=== PATIENT | female | born 2000 | race Caucasian/White ===

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

== ENCOUNTER 2021-11-25 17:58 | Emergency (ER) | payer SELFPAY ==
--- NOTE | 2021-11-25 18:24 | EDPHYS ---
Physician Documentation [facility] Name: Sherita Mccurdy Age: 21 yrs Sex: Female : 2000 Arrival Date: 11/25/2021 Time: 18:01 Bed Waiting Private MD: Benjamin Naylor E ED Physician Jefry Duvall HPI: 11/25 18:30 This 21 yrs old Female presents to ER via Ambulatory with complaints of Arm Pain - left.jh7 18:30 He wasPatient reports that her Nexplanon implant in her left upper arm has been causing jh7 her pain for the past month. States that she has had it in for 5 years, but was supposed to only have it in for 3 years. Denies fever, redness, or swelling.. 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 - Social history:: Smoking status: Patient denies any tobacco usage or history of. Patient/guardian denies using alcohol. ROS: 18:30 Constitutional: Negative for fever, chills, and weight loss, Cardiovascular: Negative jh7 for chest pain, palpitations, and edema, Respiratory: Negative for shortness of breath, cough, wheezing, and pleuritic chest pain, Abdomen/GI: Negative for abdominal pain, nausea, vomiting, diarrhea, and constipation, Skin: Negative for injury, rash, and discoloration, Neuro: Negative for headache, weakness, numbness, tingling, and seizure. 18:30 MS/extremity: Positive for pain, Negative for injury or acute deformity, rash, swelling. 18:30 All other systems are negative. Exam: 18:30 Constitutional: This is a well developed, well nourished patient who is awake, alert, jh7 and in no acute distress. Cardiovascular: Regular rate and rhythm with a normal S1 and S2. No gallops, murmurs, or rubs. Normal PMI, no JVD. No pulse deficits. Respiratory: Lungs have equal breath sounds bilaterally, clear to auscultation and percussion. No rales, rhonchi or wheezes noted. No increased work of breathing, no retractions or nasal flaring. Abdomen/GI: Soft, non-tender, with normal bowel sounds. No distension or tympany. No guarding or rebound. No evidence of tenderness throughout. Skin: Warm, dry with normal turgor. Normal color with no rashes, no lesions, and no evidence of cellulitis. Neuro: Awake and alert, GCS 15, oriented to person, place, time, and situation. Sensory grossly intact. Normal gait. 18:30 Skin: Nexplanon implant palpable in the left upper arm. No erythema, swelling, or drainage noted. The area is mildly tender to palpation.. Vital Signs: 18:25 BP 156 / 94; Pulse 86; Resp 18; Temp 98.7(TE); Pulse Ox 100% on R/A; Weight 88.45 kg; ld1 Height 5 ft. 3 in. (160.02 cm); Pain 9/10; 18:25 Body Mass Index 34.54 (88.45 kg, 160.02 cm) ld1 MDM: 18:23 Patient medically screened. [facility] 18:30 Data reviewed: vital signs, nurses notes. Data interpreted: Pulse oximetry: is 100 %. jh7 Interpretation: normal. Counseling: I had a detailed discussion with the patient and/or guardian regarding: the historical points, exam findings, and any diagnostic results supporting the discharge/admit diagnosis, the need for outpatient follow up, an OB/Gyne specialist. ED course: Informed the patient that we could give her something for pain today, but that she would need to follow-up with her CEMENT MASON for Nexplanon implant removal. Agreed to give her medication for pain over the weekend while she scheduled a visit with her CEMENT MASON. The patient understood the plan of care.. Administered Medications: 18:26 Drug: Ketorolac 60 mg Route: IM; Site: right deltoid; ld1 Disposition: 11/26 18:01 Co-signature as Attending Physician, Jefry Duvall MD. me2 Disposition Summary: 11/25/21 18:23 Discharge Ordered Location: Home [facility] Problem: [facility] Symptoms: have improved [facility] Condition: Stable [facility] Diagnosis - Pain in left upper arm [facility] Followup: [facility] - With: Flavio Parnell MD - When: 1 - 2 days - Reason: Further diagnostic work-up Followup: [facility] - With: Esther Vaughn MD - When: 1 - 2 days - Reason: Further diagnostic work-up Discharge Instructions: - Discharge Summary Sheet [facility] Forms: - Medication Reconciliation Form [facility] - Thank You Letter [facility] Prescriptions: - Tramadol 50 mg Oral Tablet - take 1 tablet by ORAL route every 8 hours as needed; 12 tablet; Refills: 0, jh7 Product Selection Permitted Signatures: Jefry Duvall MD MD ma2 Kiarra De Souza RN RN ld1 Meaghan Nunez, AEROBICS INSTRUCTOR AEROBICS INSTRUCTOR [facility]
[2021-11-25] MEDS ORDERED: KETOROLAC 30 MG/ML INJ ONE (18:28)
--- NOTE | 2021-11-25 18:31 | ER ---
Nurse's Notes [facility] Name: Sherita Mccurdy Age: 21 yrs Sex: Female : 2000 Arrival Date: 11/25/2021 Time: 18:01 Bed Waiting Private MD: Benjamin Naylor E Diagnosis: Pain in left upper arm Presentation: 11/25 18:25 Chief complaint: Patient states: Left arm pain - control . Coronavirus ld1 screen: At this time, the client does not indicate any symptoms associated with coronavirus-19. Ebola Screen: No symptoms or risks identified at this time. Initial Sepsis Screen: Does the patient meet any 2 criteria? No. Patient's initial sepsis screen is negative. Does the patient have a suspected source of infection? No. Patient's initial sepsis screen is negative. Risk Assessment: Do you want to hurt yourself or someone else? Patient reports no desire to harm self or others. Onset of symptoms was November 25, 2021. 18:25 Method Of Arrival: Ambulatory ld1 18:25 Acuity: BI 4 ld1 Triage Assessment: 18:25 General: Appears in no apparent distress. comfortable, Behavior is calm, cooperative, ld1 appropriate for age. Pain: Complains of pain in left arm Pain does not radiate. Pain currently is 6 out of 10 on a pain scale. Quality of pain is described as throbbing. EENT: No signs and/or symptoms were reported regarding the EENT system. Neuro: Level of Consciousness is awake, alert, obeys commands, Oriented to person, place, time, situation. Cardiovascular: Capillary refill < 3 seconds Patient's skin is warm and dry. Respiratory: Airway is patent Respiratory effort is even, unlabored. GI: Abdomen is round non-distended. : No signs and/or symptoms were reported regarding the genitourinary system. Derm: No signs and/or symptoms reported regarding the dermatologic system. Musculoskeletal: No signs and/or symptoms reported regarding the musculoskeletal system. 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 - Social history:: Smoking status: Patient denies any tobacco usage or history of. Patient/guardian denies using alcohol. Screenin:30 Abuse screen: Denies threats or abuse. Denies injuries from another. Nutritional ld1 screening: No deficits noted. Tuberculosis screening: No symptoms or risk factors identified. Fall Risk None identified. Assessment: 18:30 Reassessment: Patient appears in no apparent distress at this time. see triage ld1 assessment. Vital Signs: 18:25 BP 156 / 94; Pulse 86; Resp 18; Temp 98.7(TE); Pulse Ox 100% on R/A; Weight 88.45 kg; ld1 Height 5 ft. 3 in. (160.02 cm); Pain 9/10; 18:25 Body Mass Index 34.54 (88.45 kg, 160.02 cm) ld1 ED Course: 18:01 Patient arrived in ED. am2 18:01 Benjamin Naylor MD is Private Physician. 2 18:22 Meaghan Nunez FNP [facility] jh7 18:22 Jefry Duvall MD is Attending Physician. 7 18:22 Flavio Parnell MD is Referral Physician. [facility] 18:23 Esther Vaughn MD is Referral Physician. [facility] 18:25 Triage completed. ld1 18:25 Arm band placed on right wrist. ld1 18:30 Patient has correct armband on for positive identification. Placed in gown. Bed in low ld1 position. Call light in reach. Side rails up X2. night monitor on. Pulse ox on. NIBP on. Door closed. Noise minimized. Warm blanket given. 18:30 No provider procedures requiring assistance completed. Patient did not have IV access ld1 during this emergency room visit. Administered Medications: 18:26 Drug: Ketorolac 60 mg Route: IM; Site: right deltoid; ld1 Medication: 18:30 VIS not applicable for this client. ld1 Outcome: 18:23 Discharge ordered by . [facility] 18:30 Discharged to home ambulatory. ld1 18:30 Condition: stable 18:30 Discharge instructions given to patient, family, Instructed on discharge instructions, follow up and referral plans. medication usage, Demonstrated understanding of instructions, follow-up care, medications. 18:31 Patient left the ED. ld1 Signatures: Bonnie Beyer am2 Kiarra De Souza, RN RN ld1 Meaghan Nunez FNP FNP jh7
[2021-11-25 18:42] VITALS: BP 156/94; TEMP 98.7; O2SAT 100
== END 2021-11-25 18:31 | disposition home or self-care (01) ==
LOC: ER 17:58
DX: M79.622 Pain in left upper arm (principal)
CPT/HCPCS: 96372; 99284